=== PATIENT | male | born 1970 | race Caucasian/White ===

== ENCOUNTER 2019-07-22 10:50 | Emergency (ER) | payer SELFPAY ==
[~2019-07-22] VITALS: Ht 185.4 cm; Wt 100.0 kg
[2019-07-22 10:59] VITALS: BP 138/98
[2019-07-22] MEDS ORDERED: LIDOCAINE 1% INJ 20 ML 20 ML VIAL INJ ONE (11:15)
[2019-07-22] MEDS ORDERED: TETANUS,DIPTH,PERTUSS P/F (BOOSTRIX) 0.5 ML VIAL IM ONE (11:15)
[2019-07-22] MEDS ORDERED: CEPH500T PO (11:41)
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
[2019-07-22] MEDS ORDERED: ACETAMINOPHEN 325 MG TABLET PO ONE (11:45)
--- OUTSIDE RECORDS SUMMARY | 2019-07-27 06:28 | XMS REPORT | Continuity of Care Document ---
Author Organization Unknown Address Unknown Phone Unavailable Allergies Active Description Code Type Severity Reaction Onset Reported/Identified Relationship to Patient Clinical Status Yes No Known Drug Allergies [id number] Drug Allergy Unknown N/A 07/22/2019 Medications There is no data. Problems There is no data. Procedures There is no data. Results There is no data. Encounters ACCT No. Visit Date/Time Discharge Status Pt. Type Provider Facility Loc./Unit Complaint [id number] 07/22/2019 10:51:00 020 11:46:00 DIS Emergency PETE POLANCO Via [facility] ER FINGER LACERATION
== END 2019-07-22 11:46 | disposition home or self-care (01) ==
LOC: EDUNIT# 10:50 → ER 10:51
DX: S61.213A Laceration without foreign body of left middle finger without damage to nail, initial encounter (principal); F17.210 Nicotine dependence, cigarettes, uncomplicated; Z23 Encounter for immunization; W31.89XA Contact with other specified machinery, initial encounter
CPT/HCPCS: 12032; 90715

== ENCOUNTER 2020-03-25 17:50 | Emergency (ER) | payer SELFPAY ==
[~2020-03-25] VITALS: Ht 185.4 cm; Wt 81.6 kg
[2020-03-25 17:50] VITALS: BP 130/75
[~2020-03-25 17:50] MED LIST: CEPH500T PO
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
[2020-03-25] MEDS ORDERED: LORazepam INJ 2 MG/ML (ATIVAN) VIAL IVP PRN (18:00)
[2020-03-25 18:09] LABS: BASOPHILS # (AUTO) 0.1 10^3/uL (0.0-0.1); BASOPHILS % (AUTO) 1 % (0-10); EOSINOPHILS # (AUTO) 0.2 10^3/uL (0.0-0.3); EOSINOPHILS % (AUTO) 2 % (0-10); HEMATOCRIT 47 % (40-54); HEMOGLOBIN 15.3 g/dL (13.3-17.7); LYMPHOCYTES # (AUTO) 2.1 10^3/uL (1.0-4.0); LYMPHOCYTES % (AUTO) 23 % (12-44); MEAN CORPUSCULAR HEMOGLOBIN 28 pg (25-34); MEAN CORPUSCULAR HGB CONC 33 g/dL (32-36); MEAN CORPUSCULAR VOLUME 85 fL (80-99); MEAN PLATELET VOLUME 11.4 fL (9.0-12.2); MONOCYTES # (AUTO) 0.8 10^3/uL (0.0-1.0); MONOCYTES % (AUTO) 9 % (0-12); NEUTROPHILS % (AUTO) 65 % (42-75); PLATELET COUNT 265 10^3/uL (130-400); WHITE BLOOD COUNT 9.2 10^3/uL (4.3-11.0)
[2020-03-25 18:18] LABS: ALBUMIN 4.2 GM/DL (3.2-4.5); CHLORIDE 106 MMOL/L (98-107); SODIUM 139 MMOL/L (135-145)
[2020-03-25 18:19] LABS: CALCIUM 8.9 MG/DL (8.5-10.1)
[2020-03-25 18:20] LABS: GLUCOSE 116 MG/DL (70-105); TOTAL PROTEIN 7.8 GM/DL (6.4-8.2)
[2020-03-25 18:21] LABS: CARBON DIOXIDE 22 MMOL/L (21-32)
[2020-03-25 18:22] LABS: BILIRUBIN,TOTAL 0.4 MG/DL (0.1-1.0)
[2020-03-25 18:23] LABS: ALKALINE PHOSPHATASE 102 U/L (40-136); POTASSIUM 5.3 MMOL/L (3.6-5.0)
[2020-03-25 18:24] LABS: GFR ESTIMATED > 60
[2020-03-25 18:25] LABS: BUN/CREATININE RATIO 14
[2020-03-25 18:27] LABS: ALANINE AMINOTRANSFERASE 49 U/L (0-55)
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
[2020-03-25] MEDS ORDERED: AMOX500C2 PO (20:22)
== END 2020-03-25 18:37 | disposition left against medical advice (07) ==
LOC: EDUNIT# 17:50 → ER 17:51
DX: S01.81XA Laceration without foreign body of other part of head, initial encounter (principal); S20.311A Abrasion of right front wall of thorax, initial encounter; V89.2XXA Person injured in unspecified motor-vehicle accident, traffic, initial encounter
CPT/HCPCS: 36415; 80053; 85025

== ENCOUNTER 2020-03-25 19:20 | Emergency (ER) | payer SELFPAY ==
[~2020-03-25] VITALS: Ht 185 cm; Wt 81.0 kg
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
[2020-03-25] MEDS ORDERED: HOLD METFORMIN - RECEIVED CONTRAST 20 ML VIAL IV SCH (20:00)
[2020-03-25] MEDS ORDERED: NS 100 ML (IVPB) BAG IV ONE (20:00)
[2020-03-25] MEDS ORDERED: IOHEXOL 350 MG/ML 100 ML (OMNIPAQUE 350) VIAL IV ONE (20:00)
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
--- NOTE | 2020-03-25 20:13 | NUR ---
Returned from CT
[2020-03-25] MEDS ORDERED: AMOX500C2 PO (20:22)
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
[2020-03-25 20:35] VITALS: BP 130/75
== END 2020-03-25 20:35 ==
LOC: ER 19:20 → EDUNIT# 19:20 → ER 20:35
DX: S01.511A Laceration without foreign body of lip, initial encounter (principal); S20.311A Abrasion of right front wall of thorax, initial encounter; Z77.22 Contact with and (suspected) exposure to environmental tobacco smoke (acute) (chronic); V89.2XXA Person injured in unspecified motor-vehicle accident, traffic, initial encounter
CPT/HCPCS: 70450; 70486; 71260; 72125; 74177